=== PATIENT | female | born 1985 | race Caucasian/White ===

== ENCOUNTER 2017-04-03 15:55 | Outpatient (CLI) | payer BC ==
[~2017-04-03] VITALS: Ht 172.7 cm; Wt 93.6 kg
[2017-04-03 16:09] VITALS: BP 125/89; PULSE 72; TEMP 98
[2017-04-03] MEDS ORDERED: PRENATAL (16:23)
[2017-04-03] MEDS ORDERED: COLACE 100100 MG/CAP PO (16:24)
[2017-04-03 17:00] VITALS: BP 125/89; PULSE 72; TEMP 98
== END 2017-04-03 18:05 | disposition home or self-care (01) ==
LOC: LDRO 15:55
DX: Z34.83 Encounter for supervision of other normal pregnancy, third trimester (principal); Z3A.39 39 weeks gestation of pregnancy

== ENCOUNTER 2017-05-24 06:27 | Inpatient (IN) | payer OTHER ==
[~2017-05-24] VITALS: Ht 172.7 cm; Wt 97.7 kg
[2017-05-24] VITALS (35 sets, daily range): BP systolic 110–182; BP diastolic 57–99; PULSE 50–133; TEMP 97.8–98.5
[~2017-05-24 06:27] MED LIST: COLACE 100100 MG/CAP PO; PRENATAL
[2017-05-24] MEDS ORDERED: TUMS500 MG (07:42)
[2017-05-24 08:11] LABS: BASO % 0.4 % (0.0-2.0); EOS # 0.1 (0.0-0.7); EOS % 0.7 % (0-4.0); GRAN # 4.8 (1.4-6.5); GRAN % 65.1 % (42.2-75.2); HEMOGLOBIN 12.6 g/dl (12.5-16.0); LYMPH # 2.2 (1.2-3.4); LYMPH % 29.3 % (20.0-51.0); MEAN CELL VOLUME 88 fl (80.0-100.0); MEAN CORPUSCULAR HEMOGLOBIN 31 pg (27.0-31.0); MEAN CORPUSCULAR HGB CONC 35 g/dl (33.0-37.0); MONO # 0.3 (0.1-0.6); MONO % 4.1 % (1.7-9.3); PLATELET COUNT 208 K/mm3 (130-400); RED BLOOD COUNT 4.11 M/mm3 (4.10-5.30); REDCELL DISTRIBUTION WIDTH-CV 12.9 % (11.5-14.5)
[2017-05-24 08:22] LABS: HEMATOCRIT 36.1 % (37.0-47.0)
[2017-05-24 09:41] LABS: COLLECTION METHOD CLEAN CATCH
[2017-05-24 09:52] LABS: PH 6 (5-8); SQUAMOUS EPITHELIAL 0-2 /hpf; URINE APPEARANCE Clear; URINE BACTERIA None Seen /hpf; URINE BILIRUBIN Negative (NEGATIVE); URINE BLOOD 2+ (NEGATIVE); URINE COLOR Yellow; URINE GLUCOSE Negative (NEGATIVE); URINE KETONE Negative (NEGATIVE); URINE LEUKOCYTE ESTERASE Trace (NEGATIVE); URINE NITRATE Negative (NEGATIVE); URINE PROTEIN(semi-quant) Negative (NEGATIVE); URINE RBC 20-50 /hpf; URINE UROBILINOGEN Negative (NEGATIVE)
[2017-05-24 09:55] LABS: BILIRUBIN,TOTAL 0.3 mg/dL (0.0-1.0); CALCIUM 9.7 mg/dL (8.4-10.2); CREATININE, serum 0.77 mg/dL (0.52-1.25); POTASSIUM 3.8 mmol/L (3.4-5.0); TOTAL PROTEIN 6.5 gm/dL (6.4-8.2)
[2017-05-25 02:45] VITALS: BP 119/61; PULSE 64; TEMP 97.9
[2017-05-25 09:19] VITALS: BP 122/82; PULSE 70; TEMP 97.6
[2017-05-25 16:57] VITALS: BP 131/85; PULSE 85; TEMP 97.5
[2017-05-25 20:05] VITALS: BP 128/73; PULSE 79; TEMP 97.4
[2017-05-26 08:43] VITALS: BP 128/95; PULSE 75; TEMP 97.7
[2017-05-26 09:30] VITALS: BP 143/95
[2017-05-26] MEDS ORDERED: IBU600 MG PO (09:47)
[2017-05-26] MEDS ORDERED: ADALAT CC60 MG PO (09:47)
[2017-05-26 14:30] VITALS: BP 135/87
== END 2017-05-26 15:00 | disposition home or self-care (01) | DRG 775 ==
LOC: LDR 07:16 → OB 16:30
PROVIDERS: Obstetrics & Gynecology
PROC: 10E0XZZ Delivery of Products of Conception, External Approach (ICD-10-PCS; principal; 2017-05-24)
PROC: 0HQ9XZZ Repair Perineum Skin, External Approach (ICD-10-PCS; 2017-05-24)
PROC: 3E033VJ Introduction of Other Hormone into Peripheral Vein, Percutaneous Approach (ICD-10-PCS; 2017-05-24)
DX: O36.5930 Maternal care for other known or suspected poor fetal growth, third trimester, not applicable or unspecified (principal); O36.0130 Maternal care for anti-D [Rh] antibodies, third trimester, not applicable or unspecified; O43.123 Velamentous insertion of umbilical cord, third trimester; O70.0 First degree perineal laceration during delivery; O99.824 Streptococcus B carrier state complicating childbirth; Z3A.39 39 weeks gestation of pregnancy; Z37.0 Single live birth
CPT/HCPCS: J2405; J2540; J2590; J2791; J2795; J7120

== ENCOUNTER → 2017-05-27 | Outpatient (CLI) | payer OTHER ==
[~2017-05-27] MED LIST changes: +ADALAT CC60 MG PO; +IBU600 MG PO; +TUMS500 MG
== END ==
LOC: LAC 11:14
DX: Z39.1 Encounter for care and examination of lactating mother (principal); Z71.89 Other specified counseling

== ENCOUNTER → 2019-03-30 | Outpatient (CLI) | payer OTHER | LOC: COL.LAB 08:15 | DX: Z32.00 Encounter for pregnancy test, result unknown (principal) ==

== ENCOUNTER → 2023-12-11 | Outpatient (CLI) | payer OTHER | LOC: MC.RAD 14:48 | DX: Z12.31 Encounter for screening mammogram for malignant neoplasm of breast (principal) ==